=== PATIENT | female | born 1970 | race Hispanic/Latino ===

== ENCOUNTER 2020-01-22 07:50 | Outpatient (CLI) | payer OTHER, SELFPAY ==
--- NOTE | ~2020-01-22 | MM_ITS ---
EXAMINATION: MM screening inna BI w azucena HISTORY: Screening mammogram TECHNIQUE: Craniocaudal and mediolateral oblique 3-D tomosynthesis images were obtained and synthetic 2-D images were generated. CAD analysis was submitted and interpreted. COMPARISON: 12/21/2018 bilateral digital screening mammogram BREAST PARENCHYMAL COMPOSITION: There are scattered areas of fibroglandular density. FINDINGS: There is no evidence of suspicious mass, calcification, or architectural distortion to sugg est malignancy in either breast. There has been no suspicious interval change. IMPRESSION: 1. No mammographic evidence of malignancy. 2. Recommend routine screening mammography in one year. BI-RADS Category 1: Negative Reviewed, dictated and finalized at location A.
== END 2020-01-22 07:51 | disposition home or self-care (01) ==
LOC: ANHIMG 07:52
PROVIDERS: PCP Family Medicine; Visit Provider Family Medicine
DX: Z12.31 Encounter for screening mammogram for malignant neoplasm of breast (principal)
CPT/HCPCS: 77063; 77067

== ENCOUNTER 2020-08-20 08:19 | Emergency (ER) | payer OTHER, SELFPAY ==
[2020-08-20 08:28] VITALS: BP 135/80; PULSE 76; RESP 16; TEMP 36.6; O2SAT 99
--- NOTE | 2020-08-20 08:29 | ED.GENADULT ---
HPI - General Adult General Chief complaint: Upper Respiratory Infection Stated complaint: Sore Throat Time Seen by Provider: 08/20/20 08:29 Source: patient and RN notes reviewed Mode of arrival: ambulatory Limitations: no limitations History of Present Illness HPI narrative: 50-year-old female presents with complaints of sore throat for 1 day. Cough drops without relief. No high fevers, drooling, neck or throat swelling. Pain is bilateral. Hurts to swallow. Exacerbation factors consist of talking, eating, and drinking. No rhinorrhea or nasal congestion. No voice change. No nausea, vomiting, or abdominal pain. Tolerating liquids well. Denies chills, dyspnea, difficulty swallowing, jaw pain, dental pain, facial pain, foreign body sensation, and rash. Remains active. The patient reports she have not been diagnosed with COVID-19. The patient reports she is not waiting for the results of a COVID-19 lab test. The patient reports she do not have fever, chills, weakness, or fatigue. The patient reports she do not have a new or worsening cough or shortness of breath. Denies chest pain. The patient reports she do not have any loss of taste or diarrhea. Denies recent traveling. Denies concerns for COVID-19 or exposures been home with limited outdoor exposure except for essential household needs, work, and return home. At this time, patient is not suspected of having COVID-19. Some parts of this dictation were generated by voice recognition software and may contain typographical and/or grammatical inaccuracies. Related Data Allergies Allergy/AdvReac Type Severity Reaction Status Date / Time No Known Allergies Allergy Verified 11/21/19 17:09 Review of Systems Review of Systems: Narrative: CONSTITUTIONAL: Denies fever, chills, sweats. EYES: Denies visual changes, redness, discharge. ENT: Denies rhinorrhea, congestion, otalgia. Complains of sore throat. CARDIOVASCULAR: Denies chest pain, palpitations, edema. RESPIRATORY: Denies dyspnea, wheezing, cough. GASTROINTESTINAL: Denies abdominal pain, nausea, vomiting, diarrhea. GENITOURINARY: Denies dysuria, hematuria, abnormal discharge. SKIN: Denies rash or itching. MUSCULOSKELETAL: Denies acute back pain, joint pain, or myalgia. NEUROLOGIC: Denies numbness or focal weakness. PSYCHIATRIC: Denies anxiety or depression. All systems reviewed & are unremarkable except as noted in HPI and below. [facility] Past Medical History Medical History Anxiety Asthma Surgical History Surgical History No significant past surgical history Family History Family History (Updated 08/20/20 @ 09:09 by RAUL Auguste) Father Family history of coronary artery disease Mother , Related to Non-Hodgkin Lymphoma Non-Hodgkin lymphoma Other Hypertension Social History Social History (Updated 08/20/20 @ 09:12 by RAUL Auguste) Smoking status: Never smoker Tobacco type: cigarettes Second hand tobacco smoke exposure: No Alcohol intake: never Substance use: never Living arrangements: with family Occupation/Education: occupation Gender identity (if verbalized by the patient): Female Sexual Orientation (if Verbalized by the Patient): Straight or Heterosexual Comments At time of signature, agree with nurse past medical, surgical, social, and family history. There is relevant patient's past medical history pertinent to the presenting complaint, no relevant family history pertinent to the presenting complaint. Exam Narrative: Exam Narrative: GENERAL: This is a well-nourished, well-developed patient, in no apparent distress. Speaks in full sentences without deficits and ambulates with steady gait without dyspnea. HEAD: normocephalic, atraumatic. EYES: PERRL. Sclera clear/white. Vision is grossly intact. EARS: External ears normal, darlene
== END 2020-08-20 09:06 | disposition home or self-care (01) ==
PROVIDERS: Emergency Provider Nurse Practitioner Family; PCP Family Medicine
DX: J02.9 Acute pharyngitis, unspecified (principal); Z20.828 Contact with and (suspected) exposure to other viral communicable diseases; J45.909 Unspecified asthma, uncomplicated
CPT/HCPCS: 87081; 87804; 87880; 99213; G0463

== ENCOUNTER 2020-08-20 10:58 | Outpatient (NON) | payer OTHER, SELFPAY ==
[2020-08-20 23:09] LABS: SARS-CoV-2 RNA PCR Negative
== END 2020-08-20 10:59 ==
PROVIDERS: PCP Family Medicine; Visit Provider Nurse Practitioner Family
DX: Z20.828 Contact with and (suspected) exposure to other viral communicable diseases (principal); J02.8 Acute pharyngitis due to other specified organisms
CPT/HCPCS: 87081; 87635; 87804; 87880; 99213; C9803; G0463; U0003

== ENCOUNTER 2021-07-02 16:39 | Outpatient (CLI) | payer OTHER, SELFPAY ==
--- NOTE | ~2021-07-02 | US_ITS ---
EXAMINATION: US thyroid DATE: 07/02/2021 16:55 INDICATION: Dysphagia. Iodine deficiency related diffuse goiter. TECHNIQUE: Multiple ultrasound images of the thyroid were obtained. COMPARISON: None. FINDINGS: The right thyroid lobe measures 4.5 x 1.6 x 1.6 cm. The left thyroid lobe measures 4.5 x 1.3 x 1.1 c m. There is normal echotexture and echogenicity throughout the thyroid gland. No discrete nodules id entified. Normal vascular flow is present. IMPRESSION: 1. Normal thyroid. Reviewed, dictated and finalized at location D. IMPRESSION: 1. Normal thyroid.
== END 2021-07-02 16:40 | disposition home or self-care (01) ==
LOC: ANHIMG 16:40
PROVIDERS: PCP Family Medicine; Visit Provider Physician Assistant
DX: E01.0 Iodine-deficiency related diffuse (endemic) goiter (principal)
CPT/HCPCS: 76536

== ENCOUNTER 2021-10-01 08:06 | Emergency (ER) | payer OTHER, SELFPAY ==
--- NOTE | 2021-10-01 08:08 | ED.URI ---
HPI - URI/Sore Throat General Chief Complaint: Upper Respiratory Infection Stated Complaint: Cough Time Seen by Provider: 10/01/21 08:08 Source: patient and RN notes reviewed Mode of arrival: ambulatory Limitations: no limitations History of Present Illness HPI Narrative: 51-year-old female presents to the [facility] with complaints of cough. Patient has a history of asthma, bronchitis and depression. Symptoms started approximately 1 week ago. Has used her inhaler. States that she has been using her albuterol last dose was at 2 AM. Patient does not appear in distress. Denies chest pain or abdominal pain. Denies fevers. MD elicited complaint: cough Related Data Allergies Allergy/AdvReac Type Severity Reaction Status Date / Time No Known Allergies Allergy Verified 10/01/21 08:15 Review of Systems Review of Systems: All systems reviewed & are unremarkable except as noted in HPI and below Constitutional: Constitutional: Reports no additional constitutional complaints, Denies chills and Denies fever(s) Eyes: Eyes: Reports no additional eye complaints ENT: Reports system reviewed and no additional complaints, except as documented and Denies sore throat Cardiovascular: Cardiovascular: Reports no additional cardiovascular complaints and Denies chest pain Respiratory: Respiratory: Reports as per HPI, Reports cough, Denies dyspnea and Denies wheezing Gastrointestinal: Gastrointestinal: Reports no additional gastrointestinal complaints, Denies abdominal pain, Denies nausea and Denies vomiting Musculoskeletal: Musculoskeletal: Reports no additional musculoskeletal complaints Integumentary/Breasts: Skin/Breast: Reports system reviewed and no additional complaints, except as docu Neurologic: Reports system reviewed and no additional complaints, except as documented and Denies headache(s) Psychiatric: Psychiatric: Reports no additional psychiatric complaints Allergic/Immunologic: Allergic/Immunologic: Reports no additional allergic/immunologic complaints [facility] Past Medical History Medical History (Updated 10/01/21 @ 08:22 by Freda Lopez) Anxiety Asthma Surgical History Surgical History No significant past surgical history Family History Family History Father Family history of coronary artery disease Mother , Related to Non-Hodgkin Lymphoma Non-Hodgkin lymphoma Other Hypertension Social History Social History Smoking status: Never smoker Second hand tobacco smoke exposure: No Alcohol intake: never Substance use: never Substance use type: does not use Gender identity (if verbalized by the patient): Female Sexual Orientation (if Verbalized by the Patient): Straight or Heterosexual Comments At the time of my signature, I reviewed and agree with the nursing past medical, surgical, social, and family history. There is no relevant family history pertinent to the patient complaint. Exam Const: General: healthy appearing, no acute distress and alert Nutritional Appearance: well nourished Orientation/consciousness: patient oriented x3 Limitations: no limitations HENMT: Head: normal to inspection Ears: external ears normal and EAC's normal General nose exam: Normal external nose present, Normal nares present and Normal nasal mucous membranes and turbinates present Face and sinus: normal facial exam Throat: uvula midline, abnormal tonsil bilateral hypertrophy (Patient reports her tonsils are always enlarged) 3+; no erythema and no exudates and no uvular edema Eyes: Conjunctivae: conjunctivae normal Pupils: Equal, round and reactive pupils present Neck: Neck: normal visual inspection, no lymphadenopathy and no meningeal signs Chest: Chest palpation & inspection: normal inspection of the chest Resp: Effort & Inspection: normal respirator
[2021-10-01 08:15] VITALS: BP 140/79; PULSE 83; RESP 16; TEMP 36.7; O2SAT 99
[2021-10-01 08:21] VITALS: BP 140/79; PULSE 83; RESP 16; TEMP 36.7; O2SAT 99
== END 2021-10-01 08:24 | disposition home or self-care (01) ==
PROVIDERS: Emergency Provider Nurse Practitioner; PCP Family Medicine
DX: J40 Bronchitis, not specified as acute or chronic (principal); J45.909 Unspecified asthma, uncomplicated
CPT/HCPCS: 99213; G0463

== ENCOUNTER 2021-10-27 08:13 | Emergency (ER) | payer OTHER, SELFPAY ==
[2021-10-27] VITALS (15 sets, daily range): BP systolic 127–160; BP diastolic 57–112; PULSE 65–82; RESP 11–25; TEMP 36.6; O2SAT 95–100
--- NOTE | ~2021-10-27 | XR_ITS ---
EXAMINATION: XR chest 1V portable DATE: 10/27/2021 09:11 INDICATION: Cough. TECHNIQUE: A single frontal view of the chest was obtained. COMPARISON: Chest 2 views 05/30/2009 FINDINGS: There are airspace opacities in right lower lung zone. No pleural effusion or pneumothorax. Cardiomegaly is noted. IMPRESSION: 1. Airspace opacities in right lower lung zone, consistent with atelectasis versus pneumonia. 2. Cardiomegaly. Reviewed, dictated and finalized at location A. NICAL DATA ANALYST IMPRESSION: 1. Airspace opacities in right lower lung zone, consistent with atelectasis samaria conor pneumonia. 2. Cardiomegaly.
--- NOTE | ~2021-10-27 | CT_ITS ---
EXAMINATION: CTA chest PE protocol DATE: 10/27/2021 12:46 INDICATION: Shortness of breath and cough TECHNIQUE: Computed tomography (CT) pulmonary angiogram of the chest was performed with 100 mL Omnipa que-350 intravenous contrast. Additional 3D reconstructions utilizing coronal maximum intensity proje ction (MIP) were performed. Automated exposure control and iterative reconstruction technique were em ployed. The dose-length product was 970.01 mGy-cm. COMPARISON: None FINDINGS: Good contrast opacification of the pulmonary arteries. There is mild streak artifact from dense contr ast in the superior vena cava and right atrium. Minimal scattered respiratory motion artifact which d oes not significantly limit evaluation. No pulmonary embolism. 5 mm subpleural right lower lobe nodul e along the dome of the diaphragm and 4 mm subpleural nodule in the right middle lobe. 3 mm triangula r intrafissural lymph node along the right major fissure. No pneumonia, pulmonary edema or pleural ef fusion. Mild cardiomegaly. No pericardial effusion. Thoracic aorta is normal in caliber with no disse ction. Mild enlargement of the left and right main pulmonary arteries consistent with pulmonary arter ial hypertension. No pathologically enlarged thoracic lymphadenopathy. Small sliding-type hiatal chava ia. Calcified gallstones in the dependent aspect of the otherwise normal gallbladder. Diffuse hepatic steatosis. Mild splenomegaly measuring at least 13.9 cm. There is also a splenorenal collateral whic h suggests possibility of portal venous hypertension. Mild thoracic spondylosis. IMPRESSION: 1. No pulmonary embolism or other acute cardiopulmonary disease. 2. A couple 4 and 5 mm pleural-based nodules in the right middle and lower lobes. If the patient is l ow risk for lung cancer, no follow-up is needed. If the patient is high risk (i.e., history of smokin g or asbestos or significant radiation exposure), optional follow-up chest CT could be considered at 12 months. 3. Cardiomegaly with enlargement of the central pulmonary arteries consistent with pulmonary arterial hypertension. 4. Small sliding-type hiatal hernia. 5. Cholelithiasis. 6. Mild splenomegaly with splenorenal collateral suggesting possibility of portal venous hypertension . 7. Diffuse hepatic steatosis. Reviewed, dictated and finalized at location A. LLE OPERATOR IMPRESSION: 1. No pulmonary embolism or other acute cardiopulmonary disease. 2. A couple 4 and 5 mm pleural-based nodules in the right middle and lower lobe s. If the patient is low risk for lung cancer, no follow-up is needed. If the p atient is high risk (i.e., history of smoking or asbestos or significant radiat ion exposure), optional follow-up chest CT could be considered at 12 months. 3. Cardiomegaly with enlargement of the central pulmonary arteries consistent w ith pulmonary arterial hypertension. 4. Small sliding-type hiatal hernia. 5. Cholelithiasis. 6. Mild splenomegaly with splenorenal collateral suggesting possibility of port al venous hypertension. 7. Diffuse hepatic steatosis.
[2021-10-27 09:45] LABS: Basophils Absolute Auto 0.1 K/mm3 (0.0-0.1); Basophils Percent Auto 1.1 % (0.2-1.2); Eosinophils Absolute Auto 0.2 K/mm3 (0-0.3); Eosinophils Percent Auto 2.7 % (0-4.4); Hematocrit 39.5 % (37.0-47.0); Hemoglobin 13.4 g/dL (12.0-15.0); Immature Granulocyte Absolute 0.02 K/mm3 (0.00-0.031); Immature Granulocyte Percent A 0.3 % (0-0.5); Lymphocytes Absolute Auto 1.74 K/mm3 (0.9-3.2); Lymphocytes Percent Auto 26.4 % (18.3-44.2); Mean Corpuscular HGB Conc 33.9 g/dl (32-36); Mean Corpuscular Hemoglobin 30.2 pg (26-34); Mean Platelet Volume 11.3 fl (7.4-10.4); Monocytes Absolute Auto 0.5 K/mm3 (0.1-0.6); Monocytes Percent Auto 7.4 % (2.6-8.5); Neutrophils Absolute Auto 4.1 K/mm3 (1.3-6.7); Neutrophils Percent Auto 62.1 % (45.5-73.1); Platelet Count Result 208 k/mm3 (150-375); Red Blood Count 4.44 M/mm3 (4.2-5.4); Red Cell Distribution Width 13.1 % (11.5-14.5); White Blood Count 6.6 K/mm3 (4.5-10.0)
[2021-10-27 09:50] LABS: Alanine Aminotransferase 21 U/L (4-35); Albumin Level 4.5 g/dL (3.5-5.1); Alkaline Phosphatase 124 U/L (38-126); Anion Gap 7 mmol/L (8-16); Aspartate Amino Transferase 28 U/L (14-36); Bilirubin,Total 0.6 mg/dL (0.2-1.3); Blood Urea Nitrogen 12 mg/dL (7-17); Calcium 9.2 mg/dL (8.4-10.2); Carbon Dioxide 30 mmol/L (22-30); Chloride 100 mmol/L (98-107); Estimated CRCL calculation 160 ml/min; Estimated Glomerular Filt Rate > 60; Glucose 97 mg/dL (65-110); Potassium 4.3 mmol/L (3.4-5.0); Sodium 137 mmol/L (137-145)
[2021-10-27 10:34] LABS: NT Pro B Type Natriuretic Pept 72 pg/mL (5-100)
[2021-10-27 10:38] LABS: D Dimer 0.51 ug/mL (<0.48)
--- NOTE | 2021-10-27 10:38 | ED.GENADULT ---
HPI - General Adult General Chief complaint: Upper Respiratory Infection Stated complaint: coughing fit yesterday Time Seen by Provider: 10/27/21 08:23 Source: patient History of Present Illness HPI narrative: Patient is a 51 y/o female complaining of intermittent cough for 1 month. She states that her cough is a dry cough. She took Robitussin which helps slightly. She state that she had a bad coughing spell yesterday and felt like she could not catch her breath. She also has some mild left back pain due to cough. Related Data Allergies Allergy/AdvReac Type Severity Reaction Status Date / Time No Known Allergies Allergy Verified 10/01/21 08:15 Review of Systems Constitutional: Constitutional: Denies chills, Denies fever(s), Denies headache(s) and Denies weakness Eyes: Eyes: Denies blurry vision ENT: Denies headache(s) and Denies neck pain Cardiovascular: Cardiovascular: Denies chest pain and Reports dyspnea Respiratory: Respiratory: Reports cough and Reports dyspnea Gastrointestinal: Gastrointestinal: Denies abdominal pain, Denies diarrhea, Denies nausea and Denies vomiting Genitourinary: Genitourinary: Denies hematuria and Denies dysuria Musculoskeletal: Musculoskeletal: Reports back pain and Denies neck pain Neurologic: Denies headache(s) and Denies weakness [facility] Past Medical History Medical History (Updated 10/27/21 @ 13:44 by Laureen Stevenson MD) Anxiety Asthma Surgical History Surgical History No significant past surgical history Family History Family History Father Family history of coronary artery disease Mother , Related to Non-Hodgkin Lymphoma Non-Hodgkin lymphoma Other Hypertension Social History Social History Smoking status: Never smoker Second hand tobacco smoke exposure: No Alcohol intake: never Substance use: never Substance use type: does not use Gender identity (if verbalized by the patient): Female Sexual Orientation (if Verbalized by the Patient): Straight or Heterosexual Exam Const: General: no acute distress and well developed Orientation/consciousness: oriented to person, oriented to place, oriented to time and patient oriented x3 HENMT: Head: normocephalic Ears: external ears normal General nose exam: Normal external nose present Eyes: General: appearance normal, both eyes and all related structures Conjunctivae: conjunctivae normal Neck: Neck: normal visual inspection and full ROM Chest: Chest palpation & inspection: normal inspection of the chest and no tenderness Resp: Effort & Inspection: normal respiratory effort Auscultation: clear to auscultation bilaterally Cardio: Rate: regular rate Rhythm: regular rhythm GI: GI Palp: No abdominal tenderness and Yes Soft to palpation Skin: General skin exam: normal color and turgor normal Neuro: General: oriented to person, oriented to place, oriented to time and patient oriented x3 Cognition (Neuro): normal cognition Extrem: General: normal to inspection, full ROM and no pedal edema Psych: Appearance: grossly normal Mental Status: mental status grossly normal Affect: normal affect Course Reevaluation(s) Reevaluation #1: Informed patient about CT findings of pulmonary nodules and the need for follow up. Date: 10/27/21 Vital Signs Vital signs: Vital Signs Temperature 36.6 C 10/27/21 08:16 Pulse Rate 82 10/27/21 08:16 Respiratory Rate 18 10/27/21 08:16 Blood Pressure 155/87 H 10/27/21 08:16 Pulse Oximetry 95 10/27/21 08:16 Temperature 36.6 C 10/27/21 08:16 Pulse Rate 71 10/27/21 13:51 Respiratory Rate 19 10/27/21 13:51 Blood Pressure 127/57 L 10/27/21 13:51 Pulse Oximetry 99 10/27/21 13:51 Medical Decision Making Vital Signs Vital Signs: Vital Signs Temperature 36.6 C 10/27/21
[2021-10-28 02:02] LABS: SARS-CoV-2 RNA PCR Negative
== END 2021-10-27 13:52 | disposition home or self-care (01) ==
PROVIDERS: Emergency Provider Emergency Medicine; PCP Family Medicine
DX: J45.909 Unspecified asthma, uncomplicated (principal); R91.8 Other nonspecific abnormal finding of lung field; Z20.822 Contact with and (suspected) exposure to COVID-19; I51.7 Cardiomegaly; K44.9 Diaphragmatic hernia without obstruction or gangrene; R16.1 Splenomegaly, not elsewhere classified; K76.0 Fatty (change of) liver, not elsewhere classified; K80.20 Calculus of gallbladder without cholecystitis without obstruction
CPT/HCPCS: 36415; 71045; 71275; 80053; 83880; 85025; 85380; 99284; C9803; Q9967; U0003; U0005

== ENCOUNTER 2022-01-26 17:34 | Outpatient (CLI) | payer OTHER, SELFPAY ==
--- NOTE | ~2022-01-26 | XR_ITS ---
XR chest 2V DATE: 01/26/2022 17:51 INDICATION: Pneumonia TECHNIQUE: PA and lateral views COMPARISON: 10/27/2021 CTA chest 10/27/2021 portable AP chest FINDINGS: There is mild patchy right mid and lower lung infiltrate. The left lung appears clear. No pleural effusion or pulmonary vascular congestion or pneumothorax. Heart size appears within normal range. No hilar or mediastinal enlargement. IMPRESSION: Mild patchy right mid and lower lung infiltrate Reviewed, dictated and finalized at location A.
== END 2022-01-26 17:35 | disposition home or self-care (01) ==
LOC: ANHIMG 17:39
PROVIDERS: PCP Family Medicine; Visit Provider Physician Assistant
DX: J18.9 Pneumonia, unspecified organism (principal)
CPT/HCPCS: 71046

== ENCOUNTER 2022-06-07 08:10 | Outpatient (CLI) | payer OTHER, SELFPAY ==
--- NOTE | 2022-06-07 08:35 | ECHO_ITS ---
Patient Info Name: Vesta Cross Age: 51 years : 1970 Gender: Female Ht: 67 in Wt: 307 lbs BSA: 2.64 m2 HR: 78 bpm BP: 129 / 82 mmHg Technical Quality: Good Exam Date: 06/07/2022 10:20 AM Exam Location: [facility] Patient Status: Outpatient Admit Date: 06/07/2022 Staff Ordering Physician: Cristian Corbin MD Electronics Lead: Brigitte Wilson RDCS Attending Provider: Cristian Corbin MD Referring Physician: Shaquille VALVERDE; Exam Type: CA echo doppler color flow Study Info Indications R06.00 - Dyspnea, unspecified Complete two-dimensional, color flow and Doppler transthoracic echocardiogram is performed. Summary 1. Complete two-dimensional, color flow and Doppler transthoracic echocardiogram is performed. 2. Left ventricular chamber dimension is mildly enlarged. 3. Left ventricular systolic function is normal, estimated at 60-65%. 4. The left ventricular diastolic function is grade I diastolic dysfunction. 5. E/e' 10 is mildly elevated. 6. There is mild tricuspid valve regurgitation. 7. No pulmonary hypertension, estimated pulmonary arterial systolic pressure is 28 mmHg. Left Ventricle E/e' 10 is mildly elevated. Left ventricular chamber dimension is mildly enlarged. Left ventricular systolic function is normal, estimated at 60-65%. The left ventricular diastolic function is grade I diastolic dysfunction. Right Ventricle Right ventricular chamber dimension is normal. Right ventricular systolic function is normal. Left Atria Left atrial chamber dimension is normal. Right Atria Right atrial chamber dimension is normal. Aortic Valve The aortic valve is trileaflet. There is no aortic valve stenosis. There is no aortic valve regurgitation. Pulmonic Valve There is no pulmonic regurgitation. Mitral Valve There is no mitral valve stenosis. There is no mitral valve regurgitation. Tricuspid Valve There is mild tricuspid valve regurgitation. No pulmonary hypertension, estimated pulmonary arterial systolic pressure is 28 mmHg. Pericardium/Pleural There is no pericardial effusion. Inferior Vena Cava Normal inferior vena cava with >50% collapse upon inspiration consistent with normal right atrial pressure, 5 mmHg. Aorta The aortic root size at the sinus of Valsalva is normal. Left Ventricular Outflow Tract Name Value Normal LVOT 2D LVOT Diameter 2.0 cm LVOT Doppler LVOT Peak Gradient 6 mmHg LVOT Mean Gradient 3 mmHg LVOT VTI 28 cm LVOT VTI/AV VTI Ratio 1.0 LVOT Stroke Volume 85 ml LVOT CO 14.9 l/min LVOT CI 5.7 l/min/m2 Pulmonic Valve Name Value Normal PV Doppler PV Peak Gradient
--- NOTE | 2022-06-07 15:09 | WPDSIXMINUTE ---
Six Minute Walk Procedure Procedure Performed Pulmonary Stress Test (6 min walk) Six Minute Walk Six Minute Walk: This is a 6 minute walk test. The test was performed and interpreted in accordance with the 2014 ERS/ATS task force guidelines. Findings: The patient's resting room air oxygen saturation measured by pulse oximetry was 96% and heart rate was 80 bpm. Patient ambulated for 335 meters and oxygen saturation remained 94 to 98%. Heart rate at the end of the study was 106 bpm. The patient did not qualify for supplemental oxygen at rest or with ambulation. There are no prior studies for comparison.
--- NOTE | 2022-06-07 15:10 | WPDPFTINT ---
PFT Procedure Performed PFT Procedure Performed Spirometry with Pre/Post Bronchodilator Plethysmography (Lung Vol) Diffusing Cap (DLCO) Flow Vol Loop PFT Interpretation This is a pulmonary function test with pre and post-bronchodilator spirometry, plethysmography and diffusing capacity. The test was performed and results interpreted in accordance with the 2019 and 2005 ATS/ERS Task Force guidelines respectively using the Global Lung Function Initiative-2012 reference equations. Patient demonstrated good effort and cooperation. Reproducibility criteria were met. The quality of the pre bronchodilator spirometry maneuver was Grade A and post bronchodilator spirometry maneuver was Grade A. Findings: Spirometry: The contour the inspiratory and expiratory flow tracing are normal. The pre bronchodilator FVC is 3.35 L, 102% predicted. The pre bronchodilator FEV1 is 2.75 L, 102% predicted. The pre bronchodilator FEV1: FVC ratio was 82%. The post bronchodilator FVC is 3.30 L, representing 1% decrease. The post bronchodilator FEV1 is 2.73 L, representing no change. The post bronchodilator FEV1: FVC ratio is 83%. Plethysmography: The total lung capacity is 4.51 L, 82% predicted. Functional residual capacity is 1.76 L, 57% predicted. The residual volume is 1.08 L, 56% predicted. Diffusing capacity: The diffusing capacity unadjusted for hemoglobin and carboxyhemoglobin is 20.4, 85% predicted. The diffusion capacity adjusted for alveolar volume is 4.64, 104% predicted. Impression: The spirometry is normal without evidence of an obstructive abnormality. There is no significant improvement after inhaling a single dose of albuterol. The total lung capacity is normal with a decreased functional residual capacity and residual volume. This is an abnormal but nonspecific lung volume pattern. The diffusing capacity is normal. There are no prior studies for comparison
== END 2022-06-07 08:11 | disposition home or self-care (01) ==
LOC: ANHPFT 08:13
PROVIDERS: PCP Family Medicine; Visit Provider Internal Medicine Pulmonary Disease
DX: R06.00 Dyspnea, unspecified (principal); Z87.09 Personal history of other diseases of the respiratory system; I36.1 Nonrheumatic tricuspid (valve) insufficiency
CPT/HCPCS: 93306; 94060; 94618; 94726; 94729

== ENCOUNTER 2024-02-06 14:47 | Outpatient (CLI) | payer OTHER, SELFPAY ==
--- NOTE | ~2024-02-06 | MM_ITS ---
EXAMINATION: MM screening inna BI w azucena HISTORY: Screening mammogram TECHNIQUE: Craniocaudal and mediolateral oblique 3-D tomosynthesis images were obtained and synthetic 2-D images were generated. CAD analysis was submitted and interpreted. COMPARISON: 01/22/2020 bilateral screening mammogram BREAST PARENCHYMAL COMPOSITION: There are scattered areas of fibroglandular density. FINDINGS: Interval new 10 x 15 mm circumscribed low-density opacity is noted in the posterior inner m id right breast. Targeted right breast ultrasound examination is recommended for this probably benign lesion. There is no evidence of suspicious mass, calcification, or architectural distortion to suggest malign lyly in either breast. There has been no other suspicious interval change. IMPRESSION: 1. 10 x 15 mm posterior new inner mid right breast circumscribed low-density mass 2. Targeted right breast ultrasound is recommended BI-RADS Category 0: Incomplete: Needs additional imaging evaluation. Reviewed, dictated and finalized at location A. IMPRESSION: 1. 10 x 15 mm posterior new inner mid right breast circumscribed low-density ma ss 2. Targeted right breast ultrasound is recommended BI-RADS Category 0: Incomplete: Needs additional imaging evaluation.
== END 2024-02-06 14:48 | disposition home or self-care (01) ==
LOC: ANHIMG 14:48
PROVIDERS: PCP Family Medicine; Visit Provider Obstetrics & Gynecology Gynecology
DX: Z12.31 Encounter for screening mammogram for malignant neoplasm of breast (principal); R92.8 Other abnormal and inconclusive findings on diagnostic imaging of breast
CPT/HCPCS: 77063; 77067

== ENCOUNTER 2024-02-07 07:09 | Emergency (ER) | payer OTHER, SELFPAY ==
--- NOTE | ~2024-02-07 | XR_ITS ---
EXAMINATION: XR wrist LT min 3V DATE: 02/07/2024 07:29 INDICATION: Left wrist pain. TECHNIQUE: 4 views of left wrist were obtained. COMPARISON: None. FINDINGS: Bone alignment is normal. No fracture. Joint spaces are normal. IMPRESSION: 1. Normal left wrist. Reviewed, dictated and finalized at [facility]. IMPRESSION: 1. Normal left wrist.
[2024-02-07 07:14] VITALS: BP 169/100; PULSE 80; RESP 18; TEMP 36.7; O2SAT 100
--- NOTE | 2024-02-07 07:44 | ED.UPPEXIN ---
HPI - Extremity Injury (Upper) General Chief Complaint: Extremity Injury, Upper Stated Complaint: left wrist injury Time Seen by Provider: 02/07/24 07:16 Source: patient Mode of arrival: ambulatory Limitations: no limitations History of Present Illness HPI narrative: 53-year-old otherwise healthy here with a complaint of rash appreciated started the ears today. Patient states that she was willing grossly maximal, felt a pop in her left wrist ,has pain with movement . MD complaint: injury to: left Other Extremity Injury: Left: wrist Exacerbating factors: movement of extremity Related Data Allergies Allergy/AdvReac Type Severity Reaction Status Date / Time No Known Allergies Allergy Verified 08/01/23 11:05 Review of Systems Review of Systems: All systems reviewed & are unremarkable except as noted in HPI and below Constitutional: Constitutional: Reports no additional constitutional complaints Eyes: Eyes: Reports no additional eye complaints ENT: Reports system reviewed and no additional complaints, except as documented Cardiovascular: Cardiovascular: Reports no additional cardiovascular complaints Respiratory: Respiratory: Reports no additional respiratory complaints Gastrointestinal: Gastrointestinal: Reports no additional gastrointestinal complaints Musculoskeletal: Musculoskeletal: Reports as per HPI Neurologic: Reports system reviewed and no additional complaints, except as documented Psychiatric: Psychiatric: Reports no additional psychiatric complaints [facility] Past Medical History Medical History (Updated 02/07/24 @ 07:49 by Addi Pineda MD) Anxiety Asthma Surgical History Surgical History No significant past surgical history Family History Family History Father Family history of coronary artery disease Mother , Related to Non-Hodgkin Lymphoma Non-Hodgkin lymphoma Other Hypertension Social History Social History Smoking status: Never smoker Second hand tobacco smoke exposure: Yes Alcohol intake: never Substance use: never Substance use type: does not use Lack of Transportation: No Lack of Food: Never True Current Housing: I Have Housing Concerned About Future Housing: No Difficulty Paying Gas/Electric Bills: No Difficulty Paying for Meds: No Currently Unemployed: No Education: Associate Degree Difficulty w/ Childcare or Family Care: No Living arrangements: with family Occupation/Education: occupation Gender identity (if verbalized by the patient): Female Sexual Orientation (if Verbalized by the Patient): Straight or Heterosexual Spiritual care concerns: No Agree to blood products: Yes Exam Narrative: GENERAL: Well-appearing, well-nourished, and in no acute distress. HEAD: Normocephalic, atraumatic. EYES: PERRLA and EOMI. NECK: Supple. CHEST: Clear to auscultation. No respiratory distress. HEART: Regular rate and rhythm. No murmur heard. Normal peripheral pulses. EXTREMITIES: Normal range of motion. No edema. mild STS of the left wrist SKIN: Warm, dry, no rash. NEURO: No focal deficits. Alert and oriented x3. PSYCH: Normal mood and affect. Course Vital Signs Vital signs: Vital Signs Temperature 36.7 C 02/07/24 07:14 Pulse Rate 80 02/07/24 07:14 Respiratory Rate 18 02/07/24 07:14 Blood Pressure 169/100 H 02/07/24 07:14 Pulse Oximetry 100 02/07/24 07:14 Oxygen Delivery Room Air 02/07/24 07:14 Temperature 36.7 C 02/07/24 07:14 Pulse Rate 80 02/07/24 07:14 Respiratory Rate 18 02/07/24 07:14 Blood Pressure 169/100 H 02/07/24 07:14 Pulse Oximetry 100 02/07/24 07:14 Oxygen Delivery Room Air 02/07/24 07:14 MDM - Extremity Injury (Upper) Differential Diagnosis Differential diagnosis: Likely sprain and strain of wr
[2024-02-07 08:12] VITALS: BP 136/77; PULSE 79; RESP 18; O2SAT 98
== END 2024-02-07 08:10 | disposition home or self-care (01) ==
LOC: ANHED 08:01
PROVIDERS: Emergency Provider Family Medicine; PCP Family Medicine
DX: S63.502A Unspecified sprain of left wrist, initial encounter (principal); F41.9 Anxiety disorder, unspecified; J45.909 Unspecified asthma, uncomplicated; X58.XXXA Exposure to other specified factors, initial encounter
CPT/HCPCS: 73110; 99283

== ENCOUNTER 2024-02-13 09:13 | Outpatient (CLI) | payer OTHER, SELFPAY ==
--- NOTE | ~2024-02-13 | XR_ITS ---
Thoracic spine: Clinical Indication: Back pain AP and lateral views were performed. No fracture is seen. There is normal alignment of the vertebrae. The intervertebral disc spaces appe ar normal. Paravertebral soft tissues appear normal. Impression: No significant abnormalities noted. Reviewed, dictated and finalized at [facility]. Impression: No significant abnormalities noted.
--- NOTE | ~2024-02-13 | XR_ITS ---
Clinical Indication: Pain PA and lateral views of the chest: Comparison: None Findings: The lungs are clear, without evidence of focal consolidation or pleural effusion. Cardiome diastinal silhouette is within normal limits. Bones and soft tissues are unremarkable. Impression: Normal chest. Reviewed, dictated and finalized at location . Impression: Normal chest.
== END 2024-02-13 09:14 | disposition home or self-care (01) ==
LOC: ANHIMG 09:14
PROVIDERS: PCP Family Medicine; Visit Provider Physician Assistant
DX: M54.6 Pain in thoracic spine (principal)
CPT/HCPCS: 71046; 72072

== ENCOUNTER 2024-03-19 12:13 | Outpatient (CLI) | payer OTHER, SELFPAY ==
--- NOTE | ~2024-03-19 | US_ITS ---
US breast RT limited DATE: 03/19/2024 12:49 INDICATION: 10 x 15 mm posterior intermittent right breast circumscribed low density new mass reporte d on 02/06/2024 screening mammogram TECHNIQUE: Real-time imaging targeted to the area of interest COMPARISON: 02/06/2024 bilateral screening mammogram FINDINGS: At 1:00 5 cm from the nipple there is a circumscribed 7 x 5.6 x 6 x 6 mm sonolucency with t hrough transmission posterior enhancement consistent with simple cyst. IMPRESSION: BI-RADS 2: Benign finding. Benign cyst Recommendation: Routine annual mammographic screening Reviewed, dictated and finalized at [facility]. Reviewed, dictated and finalized at [facility].
== END 2024-03-19 12:14 | disposition home or self-care (01) ==
LOC: ANHIMG 12:14
PROVIDERS: PCP Family Medicine; Visit Provider Obstetrics & Gynecology Gynecology
DX: R92.8 Other abnormal and inconclusive findings on diagnostic imaging of breast (principal)
CPT/HCPCS: 76642

== ENCOUNTER 2024-05-26 08:56 | Outpatient (CLI) | payer OTHER, SELFPAY ==
--- NOTE | ~2024-05-26 | DEXA_ITS ---
Bone Density Report Name: JUDY SALOMON Age: 53 Sex: Female Ethnicity: White Date of : 1970 Indication: postmenopausal; screening for osteoporosis; asthma or emphysema; Referring Provider: ELEAZAR DESIR Study: Bone densitometry was performed. Exam Date: May 26, 2024 Accession number: [id number] Bone Density: Region BMD T-score Z-score Classification AP Spine(L1-L4) 1.034 -0.1 0.8 Normal Femoral Neck (Left) 1.039 1.7 2.6 Normal Total Hip (Left) 1.307 3.0 3.6 Normal Femoral Neck (Right) 1.011 1.5 2.4 Normal Total Hip (Right) 1.276 2.7 3.3 Normal Total Hip Mean 1.292 2.9 3.5 Normal World Health Organization criteria for BMD impression classify patients as: Normal (T-score at or above -1.0), Osteopenia (T-score between -1.0 and -2.5), or Osteoporosis (T-score at or below -2.5). 10-year Fracture Risk: FRAX not reported because: All T-scores for Spine Total, Hip Total, Femoral Neck at or above -1.0 Clinical Information Provided by Patient: Has used the following medications: Vitamin D Has the following medical conditions: Asthma or Emphysema Patient maximum height was 67 Menopause Age: 51 No regular weight bearing exercise Drinks caffeinated beverages Onset of menses at age 15 Number of children 3 Impression: The patient has normal bone mass. Discussion: BONE DENSITY IS ABOVE THE MINIMUM DESIRABLE LEVEL AT ALL SKELETAL SITES TESTED. This patient?s bone mineral density is above the minimum desirable level (T-score -1.0 or better) at all sites measured. The patient should follow a healthful lifestyle (good nutrition with adequate calcium and vitamin D, and appropriate weight-bearing exercise). Follow-Up: Consider repeating this study in 5 years or sooner if there is some new clinical indication. Reported by: TEENA on 05/26/2024 9:32:00 AM. Reviewed, dictated and finalized at location [facility].
== END 2024-05-26 08:57 | disposition home or self-care (01) ==
LOC: ANHIMG 08:57
PROVIDERS: PCP Family Medicine; Visit Provider Obstetrics & Gynecology Gynecology
DX: Z78.0 Asymptomatic menopausal state (principal)
CPT/HCPCS: 77080